=== PATIENT | male | born 1965 | race Caucasian/White ===

== ENCOUNTER → 2016-09-12 | Day surgery (SDC) | payer OTHER ==
[~2016-09-12] MED LIST: ASPIRIN81 MG PO; BACLOFEN10 MG PO; CERTAGEN1 EACH PO; DICLOFENAC SOD100 MG PO; LAXATIVE OF CHOICE PO; OMEPRAZOLE20 MG PO; PERCOCET 5-3251 EACH PO; TYLENOL325 M1 PO; XARELTO10 MG PO
[2016-09-12 09:23] LABS: HCT 46.1 % (42.0-52.0); HGB 15.8 g/dl (13.2-18.0); MCH 28.9 pg (25.0-31.0); MCHC 34.3 g/dL (32.0-36.0); MCV 84.4 fL (78.0-100.0); MPV 10.2 fL (6.0-9.5); RBC 5.46 M/uL (4.70-6.00); RDW 12.6 % (11.5-14.0); WBC 3.9 K/uL (4.0-10.5)
[2016-09-12 09:42] LABS: ALBUMIN 4.7 g/dL (3.5-5.0); BILIRUBIN - TOTAL 0.9 mg/dL (0.1-1.0); CREATININE 0.9 mg/dL (0.7-1.2); GLOBULIN (CALCULATION) 2.7 g/dL (2.2-4.2); POTASSIUM 4.6 mmol/L (3.5-5.1); TOTAL PROTEIN 7.4 g/dL (6.4-8.3)
== END | disposition home or self-care (01) ==
LOC: FAS 08:30
PROVIDERS: Surgery
DX: Z12.11 Encounter for screening for malignant neoplasm of colon (principal); N40.2 Nodular prostate without lower urinary tract symptoms; K57.30 Diverticulosis of large intestine without perforation or abscess without bleeding; M19.90 Unspecified osteoarthritis, unspecified site; Z87.442 Personal history of urinary calculi; Z96.651 Presence of right artificial knee joint; Z98.2 Presence of cerebrospinal fluid drainage device; Z82.3 Family history of stroke; Z82.61 Family history of arthritis; Z82.49 Family history of ischemic heart disease and other diseases of the circulatory system; Z87.891 Personal history of nicotine dependence; Z79.1 Long term (current) use of non-steroidal anti-inflammatories (NSAID)
CPT/HCPCS: 36415; 80053; 84152; J2704